=== PATIENT | female | born 1995 | race Hispanic/Latino ===

== ENCOUNTER 2017-06-28 12:29 | Emergency (ER) | payer BC ==
--- OUTSIDE RECORDS SUMMARY | 2017-06-28 12:32 | XMS REPORT | Summary of Care ---
Author Author JASMIN BARBA N.P. Organization Unknown Address Unknown Phone Unavailable Care Team Providers Care Test Evaluator Name Role Phone CRUZITO MYERS N.P. Unavailable Unavailable JAMESON Mcgowan.JASMIN Leblanc Unavailable Unavailable Unavailable Unavailable Functional Status Name Dates Details Functional status health issues are not documented Status: Name Dates Details Cognitive status health issues are not documented Status: Problems Name Dates Details Thyroid disorder screening (V77.0, Z13.29) Status: Active Screening for diabetes mellitus (V77.1, Z13.1) Status: Active Encounter to establish care with new doctor (V65.8, Z76.89) Status: Active BMI 40.0-44.9, adult (V85.41, Z68.41) Status: Active Anemia (285.9, D64.9) Status: Active Insect bite, initial encounter (919.4, W57.XXXA) Status: Active Pruritic erythematous rash (698.8, L29.8) Status: Active Numbness and tingling of right leg (782.0, R20.0) Status: Active Medications Name Dates Details Hemocyte Plus 106-1 MG Oral Capsule TAKE ONE CAPSULE BY MOUTH DAILY Quantity: 30 MYERS N.P., CRUZITO * Start : 03-Mar-2017 Active Doxycycline Monohydrate 100 MG Oral Capsule TAKE 1 CAPSULE TWICE DAILY WITH FOOD. * Quantity: 14 Refills: 0 BARBA N.P., JASMIN * Start : 20-Apr-2017 Active Allergies and Adverse Reactions Name Dates Details No Known Allergies (Allergy) Status: Active Procedures Procedure Dates Details Procedures not documented Immunization Name Dates Details Immunizations not documented Family History Name Dates Details Family history of coagulation disorder (V18.3, Z83.2) Status: Active Social History Name Dates Details - Status: Name Dates Details Never smoker Vital Signs Date Test Result Details [id number] BP Systolic 121 mm[Hg] Status: Comments: Location: LUE; Position: Sitting BP Diastolic 81 mm[Hg] Status: Comments: Location: LUE; Position: Sitting Height 64 in Status: Weight 257.125 lb Status: Body Mass Index Calculated 44.14 kg/m2 Status: Body Surface Area Calculated 2.18 m2 Status: Temperature 97.4 f Status: Comments: Method: Temporal Heart Rate 87 /min Status: Comments: Location: L Brachial Artery; Respiration Rate 16 /min Status: Comments: Quality: Normal Results Date Description Value Details [id number] [[facility]] LYME DISEASE ANTIBODY, TOTAL, EIA WITH REFLEX TO WESTERN BLOT (IGG,IGM) Comments: REPORT COMMENT:FASTING:NO LYME AB SCREEN <0.90 {index} (Normal) Comments: Index Interpretation ----- < 0.90 Negative 0.90-1.09 Equivocal > 1.09 Positive As recommended by the Food and Drug Administration (FDA), all samples with positive or equivocal results in a Borrelia burgdorferi antibody screenwill be tested using a blot method. Positive or equivocal screening test results should not be interpreted as truly positive until verified as such using a supplemental assay (e.g., B. burgdorferi blot). The screening test and/or blot for B. burgdorferi antibodies may be falsely negative in early stagesof Lyme disease, including the period when erythema migrans is apparent. Plan of Care Name Dates Details Planned Observations Planned Goals not documented Planned Encounters Appointment; JASMIN BARBA NP On: 24-Apr-2017 18:00 Interventions Provided Discussion/Summary* Negative for Lyme disease. Follow up in clinic on Thursday. Instructions Name Dates Details Instructions not documented Encounters Appointment; CRUZITO MYERS NP Encounter Diagnosis: Problem not documented On: 26-Feb-2017 9:30 Appointment; JASMIN BARBA NP Encounter Diagnosis: Problem not documented On: 20-Apr-2017 14:00
[2017-06-28] MEDS ORDERED: ACETAMINOPHEN 325 MG TAB PO ONE (13:45)
[2017-06-28] MEDS ORDERED: IBUPROFEN 200 MG TAB PO ONE (13:45)
[2017-06-28] MEDS ORDERED: PEPCID20 MG PO (13:47)
[2017-06-28] MEDS ORDERED: IBUPROFEN400 MG PO (13:47)
== END 2017-06-28 14:00 | disposition home or self-care (01) ==
LOC: FSED 12:29
DX: G89.11 Acute pain due to trauma (principal); S83.411A Sprain of medial collateral ligament of right knee, initial encounter; S80.01XA Contusion of right knee, initial encounter; Y92.488 Other paved roadways as the place of occurrence of the external cause
CPT/HCPCS: 99283